=== PATIENT | female | born 1975 | race American Indian/Alaskan Native ===

== ENCOUNTER 2016-10-06 06:43 | Day surgery (SDC) | payer MEDICAID ==
[2016-10-06] MEDS ORDERED: WATER FOR IRRIG STERILE IR ONE (07:19)
[2016-10-06] MEDS ORDERED: XYLOCAINE 1% 20 mL ONE (07:27)
[2016-10-06] MEDS ORDERED: DIPRIVAN 10 MG/ML IV ONE ×2 (07:27)
--- NOTE | 2016-10-06 07:30 | Anesthesia Consultation ---
Anesthesia Consult and Med Hx Date of service: 10/06/16 - Airway Anesthetic Teeth Evaluation: Poor, Chipped (broken teeth) ROM Head & Neck: Adequate Mental/Hyoid Distance: Adequate Mallampati Class: Class II Intubation Access Assessment: Probably Good - Pulmonary Exam CTA: Yes - Cardiac Exam Cardiac Exam: RRR - Pre-Operative Health Status ASA Pre-Surgery Classification: ASA3 Proposed Anesthetic Plan: MAC - Pulmonary Hx Smoking: No Hx Sleep Apnea: No - Cardiovascular System Hx Hypertension: No - Central Nervous System Hx Psychiatric Problems: Yes (ADD, anxiety) - Gastrointestinal Hx Gastroesophageal Reflux Disease: Yes - Hematic Hx Anemia: Yes - Other Systems Hx Obesity: Yes (s/p gastric bypass 2009) - Additional Comments Anesthesia Medical History Comments: NAC
--- NOTE | 2016-10-06 07:31 | Anesthesia Day of Surgery ---
Anesthesia Day of Surgery - Day of Surgery Patient Examined: Yes Patient H&P Reviewed: Yes Patient is NPO: Yes
[2016-10-06] MEDS ORDERED: NACL 0.9% 1000 ML 1,000 ML IV SCH (08:00)
[2016-10-06 08:42] VITALS: BP 127/78
--- NOTE | 2016-10-06 10:15 | Post Anesthesia Evaluation ---
- Post Anesthesia Evaluation Patient Participated: Yes Airway Patent: Yes Stable Respiratory Function: Yes Nausea/Vomiting: No Temp > 96.8F: Yes Pain Manageable: Yes Adequeate Hydration: Yes Anesthesia Complications: No Block Receding Appropriately: Not Applicable Patient on Ventilator: No
--- NOTE | 2016-10-06 10:54 | Operative Report ---
ATTENDING SURGEON: Korey Haines M.D. LOG OPERATIONS COORDINATOR: Alfonso Del Cid M.D. PREOPERATIVE DIAGNOSES: Dyspepsia and dysphagia. POSTOPERATIVE DIAGNOSES: Failure of gastrojejunal anastomosis intragastric reflux. OPERATION PERFORMED: Esophagogastroduodenoscopy. INDICATION FOR PROCEDURE: The patient is a 41-year-old female with history of Bianca-en-Y gastric bypass laparoscopically done in 2009. She never had a followup EGD and lately, she has been experiencing some dyspepsia and dysphagia. After discussing the risks and benefits of the procedure, she has had consented for an EGD. DESCRIPTION OF PROCEDURE: The patient was brought to the endoscopic suite, was placed on the stretcher in the left lateral position. MAC anesthesia was given by the anesthesia team. A bite block was placed on the patient's mouth. After doing these, the endoscope was passed into the esophagus, gastric pouch and into the jejunum. Normal Bianca-en-Y configuration was visualized, but with dilated gastrojejunal anastomosis up to 2-2.2 cm, 60 mL pouch was visualized. No marginal ulcers or other abnormalities were seen. The endoscope was retrieved slowly. No other problem with gastric pouch and esophagus were visualized. These finalized the procedure well and removed completely the endoscope. The patient tolerated very well the procedure. Dr. Haines was present for the entire procedure. [facility]# [id number] ROSITA/ARTEMIO
== END 2016-10-06 06:44 | disposition home or self-care (01) ==
LOC: GIO 06:43
PROVIDERS: ATTEND Specialist
DX: K91.89 Other postprocedural complications and disorders of digestive system (principal); K91.1 Postgastric surgery syndromes; K21.9 Gastro-esophageal reflux disease without esophagitis; D50.9 Iron deficiency anemia, unspecified; F41.9 Anxiety disorder, unspecified; G47.00 Insomnia, unspecified; F34.1 Dysthymic disorder; F98.8 Other specified behavioral and emotional disorders with onset usually occurring in childhood and adolescence; I83.93 Asymptomatic varicose veins of bilateral lower extremities; F32.9 Major depressive disorder, single episode, unspecified; E66.01 Morbid (severe) obesity due to excess calories; Z68.42 Body mass index [BMI] 45.0-49.9, adult; Z98.890 Other specified postprocedural states; Z90.49 Acquired absence of other specified parts of digestive tract; Z85.820 Personal history of malignant melanoma of skin; Y83.2 Surgical operation with anastomosis, bypass or graft as the cause of abnormal reaction of the patient, or of later complication, without mention of misadventure at the time of the procedure
CPT/HCPCS: 43235; J2704; J7030